=== PATIENT | female | born 1940 | race Caucasian/White ===

== ENCOUNTER 2017-05-01 21:45 | Inpatient (IN) | payer OTHER ==
[~2017-05-01] VITALS: Ht 162.6 cm; Wt 59.8 kg
[~2017-05-01 21:45] MED LIST: LOPRESSOR25 MG PO; MOBIC7.5 MG PO; SYNTHROID88 MCG PO; VITAMIN B-121000 MC3 PO; ZESTRIL10 MG PO
[2017-05-02 10:37] VITALS: BP 160/82
[2017-05-02 16:46] VITALS: BP 143/68
[2017-05-02 19:09] LABS: HEMATOCRIT 37.4 % (36.0-46.0); MCH 31.8 PG (29.0-34.0); MCHC 32.9 G/DL (30.0-36.0); MCV 96.6 FL (83-99); MEAN PLAT.VOLUME 10.9 uM^3 (9.5-12.4); PLATELET COUNT 176 K/uL (156-360); RBC DIS.WIDTH-CV 12.5 % (11.8-14.6); RED BLOOD COUNT 3.87 M/uL (3.80-5.20); WHITE BLOOD COUNT 7.3 K/uL (4.1-10.2)
[2017-05-02 19:19] LABS: ANION GAP 7 MEQ/L (2-14); CHLORIDE 105 MEQ/L (99-109); GFR ESTIMATE (CALCULATED) > 59 mL/min/; GLUCOSE 172 mg/dL (70-99); SAMPLE HEMOLYSIS CHECK 0; SAMPLE ICTERIC CHECK 0; SAMPLE LIPEMIA CHECK 0; SODIUM 140 MEQ/L (136-147); UREA NITROGEN (BUN) 13 mg/dL (9-23)
[2017-05-02 19:37] VITALS: BP 117/63
[2017-05-02 23:24] VITALS: BP 111/56
[2017-05-03] VITALS (11 sets, daily range): BP systolic 55–119; BP diastolic 33–62
[2017-05-03 05:45] LABS: HEMATOCRIT 32.6 % (36.0-46.0); MCH 31.8 PG (29.0-34.0); MCHC 33.4 G/DL (30.0-36.0); MEAN PLAT.VOLUME 10.8 uM^3 (9.5-12.4); PLATELET COUNT 178 K/uL (156-360); RBC DIS.WIDTH-CV 12.4 % (11.8-14.6); RBC DIS.WIDTH-SD 43.2 % (39-53); RED BLOOD COUNT 3.43 M/uL (3.80-5.20); WHITE BLOOD COUNT 8.3 K/uL (4.1-10.2)
[2017-05-03 06:22] LABS: ANION GAP 6 MEQ/L (2-14); CHLORIDE 105 MEQ/L (99-109); GFR ESTIMATE (CALCULATED) > 59 mL/min/; GLUCOSE 146 mg/dL (70-99); POTASSIUM 3.9 MEQ/L (3.7-5.4); SAMPLE HEMOLYSIS CHECK 0; SAMPLE ICTERIC CHECK 0; SAMPLE LIPEMIA CHECK 0; SODIUM 139 MEQ/L (136-147); UREA NITROGEN (BUN) 11 mg/dL (9-23)
[2017-05-03 12:48] LABS: POINT-OF-CARE METER ID UU14162508
[2017-05-03 13:10] LABS: HEMATOCRIT 32.6 % (36.0-46.0); MCHC 32.2 G/DL (30.0-36.0); MCV 96.2 FL (83-99); MEAN PLAT.VOLUME 10.2 uM^3 (9.5-12.4); PLATELET COUNT 170 K/uL (156-360); RBC DIS.WIDTH-CV 12.5 % (11.8-14.6); RBC DIS.WIDTH-SD 43.9 % (39-53); RED BLOOD COUNT 3.39 M/uL (3.80-5.20); WHITE BLOOD COUNT 9.7 K/uL (4.1-10.2)
[2017-05-03 13:36] LABS: ANION GAP 6 MEQ/L (2-14); CHLORIDE 106 MEQ/L (99-109); GFR ESTIMATE (CALCULATED) > 59 mL/min/; GLUCOSE 134 mg/dL (70-99); POTASSIUM 3.6 MEQ/L (3.7-5.4); SAMPLE HEMOLYSIS CHECK 0; SAMPLE ICTERIC CHECK 0; SAMPLE LIPEMIA CHECK 0; SODIUM 139 MEQ/L (136-147); UREA NITROGEN (BUN) 12 mg/dL (9-23)
[2017-05-04 00:31] VITALS: BP 142/63
[2017-05-04 04:18] VITALS: BP 148/75
[2017-05-04 06:21] LABS: HEMATOCRIT 31.7 % (36.0-46.0); MCH 31.7 PG (29.0-34.0); MCHC 33.1 G/DL (30.0-36.0); MCV 95.8 FL (83-99); MEAN PLAT.VOLUME 11.3 uM^3 (9.5-12.4); PLATELET COUNT 169 K/uL (156-360); RBC DIS.WIDTH-CV 12.9 % (11.8-14.6); RBC DIS.WIDTH-SD 45.2 % (39-53); RED BLOOD COUNT 3.31 M/uL (3.80-5.20); WHITE BLOOD COUNT 6.7 K/uL (4.1-10.2)
[2017-05-04 07:14] LABS: ANION GAP 7 MEQ/L (2-14); CHLORIDE 108 MEQ/L (99-109); GFR ESTIMATE (CALCULATED) 58 mL/min/; POTASSIUM 4.2 MEQ/L (3.7-5.4); SAMPLE HEMOLYSIS CHECK 0; SAMPLE ICTERIC CHECK 0; SAMPLE LIPEMIA CHECK 0; SODIUM 140 MEQ/L (136-147); UREA NITROGEN (BUN) 9 mg/dL (9-23)
[2017-05-04 07:16] LABS: GLUCOSE 91 mg/dL (70-99)
[2017-05-04 07:30] VITALS: BP 147/79
[2017-05-04 11:25] VITALS: BP 129/75
[2017-05-04] MEDS ORDERED: TRAMADOL HCL50 MG PO (15:22)
== END 2017-05-04 17:00 | disposition home or self-care (01) | DRG 743 ==
LOC: ENRESERV 21:45 → EDSTATUS 05-02 08:26 → SDC 05-02 08:26 → 2SOUTH 05-02 08:27 → ENRESERV 05-02 08:43 → 2SOUTH 05-02 08:46 → ENRESERV 05-02 13:57 → 2EAST 05-02 14:56
PROVIDERS: Nurse Practitioner Acute Care; Obstetrics & Gynecology Gynecologic Oncology
DX: D25.9 Leiomyoma of uterus, unspecified (principal); L90.5 Scar conditions and fibrosis of skin; R55 Syncope and collapse; I11.9 Hypertensive heart disease without heart failure; I35.1 Nonrheumatic aortic (valve) insufficiency; I77.810 Thoracic aortic ectasia; E03.9 Hypothyroidism, unspecified; E53.8 Deficiency of other specified B group vitamins; K21.9 Gastro-esophageal reflux disease without esophagitis; K59.00 Constipation, unspecified
CPT/HCPCS: 36415; 80048; 80048 91; 82948; 85027; 86850; 86900; 86901; 86920; 88304; 88307; J0131; J0330; J0690; J1100; J1170; J1650; J1885; J2405; J2710; J2765; J3010; Q0175

== ENCOUNTER 2017-05-23 01:00 | Emergency (ER) | payer OTHER ==
[~2017-05-23] VITALS: Ht 165.1 cm; Wt 65.0 kg
[~2017-05-23 01:00] MED LIST changes: +TRAMADOL HCL50 MG PO
[2017-05-23 01:38] LABS: HEMATOCRIT 35.7 % (36.0-46.0); MCH 31.9 PG (29.0-34.0); MCHC 34.2 G/DL (30.0-36.0); MCV 93.2 FL (83-99); MEAN PLAT.VOLUME 10.4 uM^3 (9.5-12.4); PLATELET COUNT 203 K/uL (156-360); RBC DIS.WIDTH-CV 12.9 % (11.8-14.6); RBC DIS.WIDTH-SD 44.2 % (39-53); RED BLOOD COUNT 3.83 M/uL (3.80-5.20); WHITE BLOOD COUNT 4.4 K/uL (4.1-10.2)
[2017-05-23 01:49] LABS: CHLORIDE 101 mEq/L (99-109); POTASSIUM 3.7 mEq/L (3.7-5.4); SODIUM 135 mEq/L (136-147)
[2017-05-23 01:51] LABS: GLUCOSE 115 mg/dL (70-99)
[2017-05-23 01:52] LABS: ANION GAP 12 MEQ/L (2-14)
[2017-05-23 01:54] LABS: ALKALINE PHOSPHATASE 60 IU/L (3-129)
[2017-05-23 01:55] LABS: GFR ESTIMATE (CALCULATED) > 59 mL/min/
[2017-05-23 01:56] LABS: UREA NITROGEN (BUN) 14 mg/dL (9-23)
[2017-05-23] MEDS ORDERED: EFFEXOR37.5 MG PO (03:22)
[2017-05-23 03:38] LABS: ADD MIUA? YES; BILIRUBIN NEGATIVE; BLOOD NEGATIVE; COLOR YELLOW ((YELLOW)); GLUCOSE (STRIP) NEGATIVE; KETONES 20; LEUKOCYTES MODERATE; NITRITE NEGATIVE; PROTEIN (STRIP) NEGATIVE; SPECIFIC GRAVITY 1.016 (1.000-1.030); UROBILINOGEN 0.2 MG/DL (0.2-1.0)
[2017-05-23 03:46] LABS: BACTERIA RARE /HPF; EPITHELIAL CELLS RARE /HPF; MUCUS 1+ /LPF; UCUL ADDED? YES; WHITE BLOOD CELLS 15-20 /HPF (0-5)
[2017-05-23 04:09] LABS: LIPASE 19 U/L (1.0-51.0)
[2017-05-23 04:13] LABS: TROP-I INTERPRETATION NEGATIVE; TROPONIN-I < 0.01 ng/mL (0.0-0.30)
[2017-05-23] MEDS ORDERED: ZOFRAN4 MG PO (07:18)
[2017-05-23] MEDS ORDERED: KEFLEX500 MG PO (07:18)
[2017-05-23 07:38] VITALS: BP 139/76
== END 2017-05-23 07:55 | disposition home or self-care (01) ==
LOC: EME 01:00
DX: N39.0 Urinary tract infection, site not specified (principal); R11.0 Nausea; R51 Headache; I10 Essential (primary) hypertension; F32.9 Major depressive disorder, single episode, unspecified
CPT/HCPCS: 70450; 74177; 80053; 81003; 83690; 84484; 85027; 87086; 93005; 99281; 99284